=== PATIENT | male | born 1985 | race Caucasian/White ===

== ENCOUNTER 2021-07-03 10:55 | Emergency (ER) | payer BC ==
[~2021-07-03] VITALS: Ht 175.3 cm; Wt 70.3 kg
--- NOTE | 2021-07-03 11:27 | NUR ---
Patient was seen by MD. Dino wrap applied, instructions given. Crutches given and gait training done. DC AND FOLLOW INSTRUCTIONS GIVEN AND EXPLAINED TO PATIENT WHO STATES SHE UNDERSTANDS ALL INSTRUCTIONS . Patient to f/u with orthopedic doctor
== END 2021-07-03 11:29 | disposition home or self-care (01) ==
LOC: ER 10:55
DX: M25.572 Pain in left ankle and joints of left foot (principal)
CPT/HCPCS: A4663